=== PATIENT | female | born 1950 ===

== ENCOUNTER → 2017-10-23 | Outpatient (CLI) | payer OTHER | LOC: SBRMNEURO 13:09 | PROVIDERS: ATTEND Internal Medicine Pulmonary Disease | DX: G47.33 Obstructive sleep apnea (adult) (pediatric) (principal); G47.61 Periodic limb movement disorder ==

== ENCOUNTER → 2018-05-21 | Outpatient (CLI) | payer OTHER | LOC: CIMAGING 13:33 | PROVIDERS: ATTEND Family Medicine | DX: D72.829 Elevated white blood cell count, unspecified (principal) | CPT/HCPCS: 71046-PO ==